=== PATIENT | female | born 1960 | race Two or more races ===

== ENCOUNTER 2018-03-20 11:14 | Emergency (ER) | payer MEDICAID ==
[~2018-03-20] VITALS: Ht 175.3 cm; Wt 72.6 kg
[2018-03-20 11:20] VITALS: BP 129/77
[2018-03-20] MEDS ORDERED: KETOROLAC TROMETH 60MG/2ML VIAL IM ONE (12:00)
== END 2018-03-20 13:17 | disposition home or self-care (01) ==
LOC: ER 11:14 → EDBD 11:14 → ER 13:01
DX: M25.511 Pain in right shoulder (principal); K21.9 Gastro-esophageal reflux disease without esophagitis; V43.62XA Car passenger injured in collision with other type car in traffic accident, initial encounter; Y93.89 Activity, other specified; Y99.8 Other external cause status; Y92.410 Unspecified street and highway as the place of occurrence of the external cause
CPT/HCPCS: 73030; 96372; 99284; J1885